=== PATIENT | male | born 1975 | race Caucasian/White ===

== ENCOUNTER 2018-10-06 10:25 | Emergency (ER) | payer BC ==
[~2018-10-06] VITALS: Ht 185.4 cm; Wt 106.0 kg
[2018-10-06 10:51] VITALS: BP 119/63
[2018-10-06] MEDS ORDERED: BUPIVAcaine/PF 2.5 mg/ml (0.25%) 30ml vial IJ ONE (11:10)
[2018-10-06] MEDS ORDERED: naproxen 500mg tablet PO ONE (11:10)
[2018-10-06] MEDS ORDERED: HYDROcodone/acetaminophen 10/325mg tab PO ONE (11:10)
[2018-10-06] MEDS ORDERED: BUPIVAcaine/PF 2.5mg/ml (0.25%) 10ml vial IJ ONE (11:10)
--- NOTE | 2018-10-06 11:45 | NUR ---
pt refused arm sling
== END 2018-10-06 22:22 | disposition home or self-care (01) ==
LOC: ER 10:26
DX: S43.004A Unspecified dislocation of right shoulder joint, initial encounter (principal); Z98.890 Other specified postprocedural states; W01.0XXA Fall on same level from slipping, tripping and stumbling without subsequent striking against object, initial encounter; Y93.89 Activity, other specified; Y92.89 Other specified places as the place of occurrence of the external cause; Y99.8 Other external cause status
CPT/HCPCS: 23650; 73030; 99284; J3490

== ENCOUNTER 2024-02-23 15:52 | Emergency (ER) | payer BC ==
[~2024-02-23] VITALS: Ht 182.9 cm; Wt 106.8 kg
[2024-02-23] MEDS ORDERED: HYDR-3973 PO (16:56)
[2024-02-23] MEDS: HYDROcodone/acetaminophen 10/325mg tab PO ONE (17:35)
[2024-02-23 17:37] VITALS: BP 122/89; PULSE 80; RESP 17; TEMP 97.9; O2SAT 98
== END 2024-02-23 17:41 | disposition home or self-care (01) ==
LOC: ER 15:53
DX: M25.261 Flail joint, right knee (principal); M25.561 Pain in right knee; M23.611 Other spontaneous disruption of anterior cruciate ligament of right knee; Z79.899 Other long term (current) drug therapy
CPT/HCPCS: 29505; 73564; 99283